=== PATIENT | female | born 1950 | race Hispanic/Latino ===

== ENCOUNTER 2020-12-01 14:56 | Outpatient (CLI) | payer MEDICARE | END 2020-12-01 14:57 | disposition home or self-care (01) | LOC: CSHMAMMO 14:56 | PROVIDERS: ATTEND Nurse Practitioner Family | DX: Z12.31 Encounter for screening mammogram for malignant neoplasm of breast (principal) | CPT/HCPCS: 77063; 77067 ==

== ENCOUNTER 2021-06-14 10:01 | Outpatient (CLI) | payer MEDICARE | END 2021-06-14 10:02 | disposition home or self-care (01) | LOC: CSHMAMMO 10:01 | PROVIDERS: ATTEND Nurse Practitioner Family | DX: Z13.820 Encounter for screening for osteoporosis (principal); E11.9 Type 2 diabetes mellitus without complications; M81.0 Age-related osteoporosis without current pathological fracture; M85.851 Other specified disorders of bone density and structure, right thigh; M85.852 Other specified disorders of bone density and structure, left thigh | CPT/HCPCS: 77080 ==

== ENCOUNTER 2023-09-18 08:11 | Outpatient (CLI) | payer OTHER | END 2023-09-18 08:12 | disposition home or self-care (01) | LOC: CSHMAMMO 08:11 | PROVIDERS: ATTEND Internal Medicine Hematology & Oncology | DX: Z12.31 Encounter for screening mammogram for malignant neoplasm of breast (principal); Z90.12 Acquired absence of left breast and nipple | CPT/HCPCS: 77063; 77067 ==

== ENCOUNTER 2024-08-02 19:03 | Emergency (ER) | payer OTHER ==
[2024-08-02] MEDS ORDERED: Fioricet 325/50/40 mg Tablet PO SCH (20:45)
== END 2024-08-02 21:48 | disposition home or self-care (01) ==
LOC: CSHERS 19:03
DX: R51.9 Headache, unspecified (principal); E11.9 Type 2 diabetes mellitus without complications; I10 Essential (primary) hypertension
CPT/HCPCS: 70450

== ENCOUNTER 2025-04-18 19:18 | Inpatient (IN) | payer MEDICARE, OTHER ==
[~2025-04-18 19:18] MED LIST: Iopamidol 300 61% 100 ML VIAL FS ONE
[2025-04-18 20:16] LABS: #Basophils 0.14 10x3/uL (0.0-0.2); #Eosinophils 0.16 10x3/uL (0.0-0.5); #Monocytes 1.49 10x3/uL (0.0-1.1); #Neutrophils 6.40 10x3/uL (1.5-8.4); %Basophils 1.2 % (0.0-2.0); %Eosinophils 1.4 % (0.0-6.0); %Lymphocytes 28.3 % (18.0-47.0); %Monocytes 12.6 % (0.0-10.0); %Neutrophils 54.1 % (40.0-75.0); Hematocrit 33.2 % (34.9-44.5); Hemoglobin 11.0 g/dL (12.0-15.5); Mean Corpuscular Hemoglobin 25.3 pg (27.0-33.0); Mean Corpuscular Volume 76.5 fL (81.6-98.3); Platelet Count 220 10x3/uL (150-450); Red Blood Cell (RBC) Count 4.34 10x6/uL (3.90-5.03); White Blood Cell (WBC) Count 11.82 10x3/uL (3.5-10.5)
[2025-04-18 20:56] LABS: Anisocytosis MODERATE=16-30 cells (100X) (0-5/hpf); MDiff Complete? YES; Microcytosis SLIGHT = 6-15 cells (100X) (0-5/hpf); Platelet Adequacy Comment Appears Adequate; Polychromasia SLIGHT = 2-3 cells (100X) (0-2/hpf); Target Cells SLIGHT = 2-5 cells (100X) (0-1/hpf)
[2025-04-18 21:18] LABS: Troponin I 0.012 ng/mL (< 0.028)
[2025-04-18 21:21] LABS: ALT (SGPT) 71 U/L (Less than 34); AST (SGOT) 235 U/L (11-34); Albumin 1.3 g/dL (3.1-4.5); Alkaline Phosphatase 551 U/L (40-110); Anion Gap 11 mmol/L (10-20); BUN (Urea Nitrogen) 13 mg/dL (9.8-20.1); Bilirubin, Total 1.2 mg/dL (0.3-1.2); Calc. Creatinine Clearance 0 mL/min (70-130); Calcium 7.3 mg/dL (7.8-10.44); Carbon Dioxide 22 mmol/L (23-31); Chloride 104 mmol/L (98-107); Globulin 4.8 g/dL (2.4-3.5); Glucose 155 mg/dL (83-110); Magnesium 1.6 mg/dL (1.6-2.6); Potassium 5.3 mmol/L (3.5-5.1); Sodium 132 mmol/L (136-145)
[2025-04-18] MEDS ORDERED: Enoxaparin 100 MG (1 mL) SYRINGE ONE (22:08)
[2025-04-18] MEDS ORDERED: cefTRIAXone (ROCEPHIN) 2 GM VIAL ONE (22:08)
[2025-04-18] MEDS ORDERED: Azithromycin 500 MG VIAL ONE (22:08)
[2025-04-18 22:12] LABS: INR-International Normal Ratio 1.2; PTT 35.0 sec (22.0-33.0); Prothrombin Time 13.3 sec (9.5-12.1)
[2025-04-18] MEDS ORDERED: Ondansetron PF 4 MG/2 ML Vial IVP PRN (23:31)
[2025-04-18] MEDS ORDERED: Glucagon 1 MG/ML KIT IM PRN (23:43)
[2025-04-18] MEDS ORDERED: Dextrose 50% Abboject 50 ML SYRINGE SLOW IVP PRN (23:43)
[2025-04-19 03:08] VITALS: BMI 32.8
[2025-04-19 04:39] LABS: #Basophils 0.11 10x3/uL (0.0-0.2); #Eosinophils 0.23 10x3/uL (0.0-0.5); #Monocytes 1.48 10x3/uL (0.0-1.1); #Neutrophils 5.87 10x3/uL (1.5-8.4); %Basophils 0.9 % (0.0-2.0); %Eosinophils 1.9 % (0.0-6.0); %Lymphocytes 33.8 % (18.0-47.0); %Monocytes 12.3 % (0.0-10.0); %Neutrophils 48.9 % (40.0-75.0); Hematocrit 31.7 % (34.9-44.5); Hemoglobin 10.4 g/dL (12.0-15.5); Mean Corpuscular Hemoglobin 25.1 pg (27.0-33.0); Mean Corpuscular Volume 76.6 fL (81.6-98.3); Platelet Count 206 10x3/uL (150-450); Red Blood Cell (RBC) Count 4.14 10x6/uL (3.90-5.03); White Blood Cell (WBC) Count 12.01 10x3/uL (3.5-10.5)
[2025-04-19 04:50] LABS: ALT (SGPT) 61 U/L (Less than 34); AST (SGOT) 163 U/L (11-34); Albumin 1.3 g/dL (3.1-4.5); Alkaline Phosphatase 497 U/L (40-110); Anion Gap 9 mmol/L (10-20); BUN (Urea Nitrogen) 12 mg/dL (9.8-20.1); Bilirubin, Total 0.9 mg/dL (0.3-1.2); Calc. Creatinine Clearance 102 mL/min (70-130); Calcium 7.6 mg/dL (7.8-10.44); Carbon Dioxide 25 mmol/L (23-31); Chloride 104 mmol/L (98-107); Globulin 4.8 g/dL (2.4-3.5); Glucose 100 mg/dL (83-110); Potassium 4.6 mmol/L (3.5-5.1); Sodium 133 mmol/L (136-145)
[2025-04-19] MEDS: Famotidine 20 MG TAB PO SCH (08:05)
[2025-04-19] MEDS: Enoxaparin 80 MG (0.8 mL) SYRINGE SC SCH (08:05)
[2025-04-19] MEDS: Famotidine/PF 20 mg/2ml Vial SLOW IVP SCH (08:06)
[2025-04-19] MEDS: cefTRIAXone\\ROCEPHIN 2 GM in Sodium Chloride 0.9% 100 ML IVPB SCH (22:44)
[2025-04-19] MEDS: Azithromycin 500 MG in Sodium Chloride 0.9% 250 ML 250 ML IVPB SCH (22:44)
[2025-04-20 03:56] LABS: #Basophils 0.11 10x3/uL (0.0-0.2); #Eosinophils 0.28 10x3/uL (0.0-0.5); #Monocytes 1.04 10x3/uL (0.0-1.1); #Neutrophils 4.37 10x3/uL (1.5-8.4); %Basophils 1.2 % (0.0-2.0); %Eosinophils 3.0 % (0.0-6.0); %Lymphocytes 35.5 % (18.0-47.0); %Monocytes 11.3 % (0.0-10.0); %Neutrophils 47.4 % (40.0-75.0); Hematocrit 29.4 % (34.9-44.5); Hemoglobin 9.7 g/dL (12.0-15.5); Mean Corpuscular Hemoglobin 25.1 pg (27.0-33.0); Mean Corpuscular Volume 76.2 fL (81.6-98.3); Platelet Count 211 10x3/uL (150-450); Red Blood Cell (RBC) Count 3.86 10x6/uL (3.90-5.03); White Blood Cell (WBC) Count 9.22 10x3/uL (3.5-10.5)
[2025-04-20 04:08] LABS: ALT (SGPT) 50 U/L (Less than 34); AST (SGOT) 126 U/L (11-34); Albumin 1.3 g/dL (3.1-4.5); Alkaline Phosphatase 427 U/L (40-110); Anion Gap 8 mmol/L (10-20); BUN (Urea Nitrogen) 10 mg/dL (9.8-20.1); Bilirubin, Total 0.7 mg/dL (0.3-1.2); Calc. Creatinine Clearance 101 mL/min (70-130); Calcium 7.3 mg/dL (7.8-10.44); Carbon Dioxide 23 mmol/L (23-31); Chloride 106 mmol/L (98-107); Globulin 4.4 g/dL (2.4-3.5); Glucose 110 mg/dL (83-110); Potassium 3.4 mmol/L (3.5-5.1); Sodium 134 mmol/L (136-145)
[2025-04-20 08:58] VITALS: TEMP 97.6
[2025-04-20 12:48] VITALS: BP 122/58
== END 2025-04-20 13:29 | disposition home or self-care (01) | DRG 871 ==
LOC: CSHERS 19:18 → CSHTELE 23:31
PROVIDERS: ADMIT Internal Medicine; ATTEND Family Medicine
DX: A41.9 Sepsis, unspecified organism (principal); I81 Portal vein thrombosis; J18.9 Pneumonia, unspecified organism; C34.90 Malignant neoplasm of unspecified part of unspecified bronchus or lung; I50.9 Heart failure, unspecified; E11.9 Type 2 diabetes mellitus without complications; E78.5 Hyperlipidemia, unspecified; I10 Essential (primary) hypertension; K76.0 Fatty (change of) liver, not elsewhere classified; Z79.899 Other long term (current) drug therapy
CPT/HCPCS: 36415; 36416; 71045; 74177; 80053; 83605; 83735; 83880; 84145; 84484; 85025; 85610; 85730; 87040; 93005; 93970; 96372; 96374; 96375; J0456; J0696; J1650; J1815; J7050; Q9967

== ENCOUNTER 2025-04-25 23:21 | Emergency (ER) | payer MEDICARE, OTHER | END 2025-04-26 01:18 | disposition home or self-care (01) | LOC: CSHERS 23:21 | DX: S90.32XA Contusion of left foot, initial encounter (principal); R60.0 Localized edema; E11.9 Type 2 diabetes mellitus without complications; I10 Essential (primary) hypertension; E78.5 Hyperlipidemia, unspecified; Z79.899 Other long term (current) drug therapy; Z79.01 Long term (current) use of anticoagulants; W19.XXXA Unspecified fall, initial encounter; Y93.01 Activity, walking, marching and hiking | CPT/HCPCS: 99283 ==